=== PATIENT | male | born 1965 | race African-American/Black ===

== ENCOUNTER → 2020-09-09 13:34 | Outpatient (CLI) | payer MEDICAID, SELFPAY ==
--- NOTE | 2020-09-09 13:36 | CT_ITS ---
STUDY: CT ABDOMEN AND PELVIS WITH CONTRAST REASON FOR EXAM: Male, 55 years old. STAGING PANCREAS CANCER. History of pancreatic cancer with biliary stent placement and chemotherapy. History of prior bowel obstruction. RADIATION DOSAGE (If Supplied By Facility): CTDIvol = ( 7.42 ) mGy, DLP = ( 763.54 ) mGycm TECHNIQUE: Transaxial images were obtained from the dome of the diaphragm to the symphysis pubis with oral contrast. Oral and amp; IV Readi-CAT and amp; 100mL Isovue-300 was administered. Sagittal and coronal images were reconstructed. Individualized dose optimization techniques were used for this CT. COMPARISON: None. FINDINGS: The tip of a portacatheter is seen in the right atrium. The visualized lung bases are unremarkable. The visualized portions of the heart are within normal limits. Pneumobilia is seen within the biliary ducts. A biliary stent is seen in the common bile duct entering the head of the pancreas. The distal tip is in the duodenum. There are surgical clips in the gallbladder fossa consistent with a prior cholecystectomy. Normal spleen. There are dense pancreatic calcifications in the distribution of the ducts consistent with chronic pancreatitis. There is pancreatic atrophy. There is evidence of a 3.5 cm by 4.2 cm mass in the region of the head and body portion of the pancreas. There is evidence of omental metastasis. Multiple small lymph nodes are seen in the root of the mesentery. Normal bilateral adrenal glands. Normal right kidney. Normal left kidney. The stomach is distended with residual food as well as oral contrast. There is diffuse thickening of the second and third portions of the duodenum. Normal small intestine. Moderate amount of fecal material is seen in the colon. There is non-visualization of the appendix. Normal abdominal aorta. Normal inferior vena cava. Normal retroperitoneum. Normal urinary bladder. Moderate amount of free fluid is seen in the pelvis. Normal abdominal wall. Normal osseous structures. CT/Abdomen/Pelvis WITH Contrast IMPRESSION: Pneumobilia. A stent is seen within the common bile duct. Diffuse pancreatic calcification and atrophy. 3.5 cm x 4.2 cm mass in the region of the head and body portion of the pancreas. There is evidence of omental metastasis with fluid in the pelvis. Distended stomach with residual food particles and oral contrast. Diffuse thickening of the second and third portions of the duodenum. Electronically Signed: Jose Ramon Braden MD at 15:20 EDT , Service support ,
[2020-09-09 13:56] LABS: CREATININE FINGERSTICK 0.9 mg/dL (0.70-1.30); EGFR FINGERSTICK > 60.0000 mL/min (>60)
[2020-09-09] MEDS: 0.9% Saline Lock 10 ML Syringe IV ×2 (14:15→14:17)
== END ==
PROVIDERS: PCP Internal Medicine Infectious Disease; Referring Provider Internal Medicine Medical Oncology; Visit Provider Internal Medicine Medical Oncology
DX: C25.9 Malignant neoplasm of pancreas, unspecified (principal)
CPT/HCPCS: 74177; Q9967; A4216

== ENCOUNTER 2020-12-11 12:18 | Emergency (ER) | payer MEDICAID, SELFPAY ==
[2020-12-11] VITALS (8 sets, daily range): BP systolic 109–120; BP diastolic 71–96; PULSE 92–100; RESP 12–23; TEMP 36.2; O2SAT 96–99; BMI 18.8; BMI 17.6
[2020-12-11 12:26] LABS: Bedside Glucose 65 mg/dL (70-110)
--- NOTE | 2020-12-11 12:39 | PCM.HP.STD ---
HPI - General HPI Narrative SHARON ADKINS, is a 55 M with an extensive PMH as outlined below who presents with a complaint of PFSH Medical History Abdominal pain Acute hyperglycemia Acute hypokalemia Acute hyponatremia HILDA (acute kidney injury) Alcohol abuse Bipolar 1 disorder CAD (coronary artery disease) Cellulitis CHF (congestive heart failure) Chronic pancreatitis Depression Diabetes mellitus Former cigarette smoker History of hematemesis Jaundice Mandible fracture MRSA bacteremia Myocardial infarction Pancreatic cancer Sickle cell anemia Stroke Syncope Ulcer, duodenal, acute, with obstruction Home Medications clotrimazole 15 g TP BID 08/15/20 [History Last Taken Unknown] food supplemt, lactose-reduced 237 ml PO Q6H 08/15/20 [History Last Taken Unknown] haloperidol 0.5 mg PO DAILY PRN 08/15/20 [History Last Taken Unknown] ibuprofen 600 mg PO Q6H PRN PRN 08/15/20 [History Last Taken Unknown] lamotrigine 200 mg PO DAILY 08/15/20 [History Last Taken Unknown] lidocaine 1 ea TP DAILY 08/15/20 [History Last Taken Unknown] mirtazapine 15 mg PO DAILY 08/15/20 [History Last Taken Unknown] polyethylene glycol 8000(bulk) 500 g MC BID 08/15/20 [History Last Taken Unknown] sennosides 8.6 mg PO BID 08/15/20 [History Last Taken Unknown] sertraline 100 mg PO DAILY 08/15/20 [History Last Taken Unknown] Omeprazole [Prilosec] 40 mg PO BID 10/02/20 [History Last Taken Unknown] ondansetron HCl 4 mg PO Q6H PRN PRN 10/02/20 [History Last Taken Unknown] tramadol 50 mg PO Q6H PRN PRN 10/02/20 [History Last Taken Unknown] fentanyl 12 mcg/hr transdermal patch 1 patch TRANSDERMAL Q72H 11/20/20 [History Last Taken Unknown] haloperidol 5 mg tablet 5 mg PO DAILY 11/20/20 [History Last Taken Unknown] acetaminophen 325 mg tablet 650 mg PO Q4H PRN tab 12/11/20 [History Last Taken Unknown] Allergy/AdvReac Type Severity Reaction Status Date / Time morphine Allergy Rash Verified 12/11/20 12:24 Family History Aunt Breast cancer Sister Diabetes Grandmother Diabetes Mother Heart disease Other Hypertension Surgical History History of cholecystectomy History of exploratory laparotomy History of hernia repair Social History Smoking Status: Current every day smoker tobacco type: cigarettes Vital Signs Vital Signs Vital Signs: 12/11/20 12:19 Temperature 97.2 F L Temperature Source Oral Pulse Rate 99 Respiratory Rate 23 H Blood Pressure 120/71 Blood Pressure Mean 87 Pulse Ox 96 Oxygen Delivery Method Room Air Weight Weight: 129 lb 10.109 oz Body Mass Index (BMI) 17.6 Results Lab / Micro Data Labs: Laboratory Results - last 24 hr 12/11/20 12:21 POC Glucose 65 L
--- NOTE | 2020-12-11 12:49 | RAD_ITS ---
STUDY: X-RAY CHEST REASON FOR EXAM: Male, 55 years old. Neuro deficit, acute, stroke suspected TECHNIQUE: Single AP portable view of the chest. COMPARISON: None. FINDINGS: A right-sided portacatheter is seen with the tip in the right atrium. EKG electrodes are seen. Mildly increased interstitial markings in the right midlung and right lung base. The left lung is clear. There is no demonstrated pleural abnormality. Normal size heart. Normal mediastinum and brook. Normal visualized pulmonary arteries. Normal visualized aortic arch and descending thoracic aorta. Normal visualized thoracic spine. Normal visualized ribs, clavicles, and shoulders. There is no demonstrated abnormality of the visualized soft tissue structures of the upper abdomen. RAD/Chest 1 View IMPRESSION: Mild degree of increased linear markings at the right lung base and right midlung. The left lung is clear. Electronically Signed: Jose Ramon Braden MD at 13:37 EDT , Service support ,
--- NOTE | 2020-12-11 12:49 | EKG12_ITS ---
Test Reason : NEURO Blood Pressure : / mmHG Vent. Rate : 100 BPM Atrial Rate : 100 BPM P-R Int : 126 ms QRS Dur : 078 ms QT Int : 370 ms P-R-T Axes : 058 033 048 degrees QTc Int : 477 ms Normal sinus rhythm Nonspecific T wave abnormality Abnormal ECG Confirmed by BRITTNEY CHARLES, SKYLAR ([id number]), editor in chief KAYLEIGH HILL ([id number]) on 12/12/2020 1:08:44 PM Referred By: RIO Confirmed By:SKYLAR LUGO MD
--- NOTE | 2020-12-11 12:49 | CT_ITS ---
We are attempting to reach an attending provider to discuss findings. An addendum with communication details will be sent when the communication is complete. STUDY: CTA HEAD AND NECK WITH CONTRAST REASON FOR EXAM: Male, 55 years old. Neuro deficit, acute, stroke suspected RADIATION DOSAGE (If Supplied By Facility): CTDIvol = ( 22.99 ) mGy, DLP = ( 1433.80 ) mGycm TECHNIQUE: CT angiography was performed with a multi-detector CT scanner. Data acquisition was obtained from the skull base through the vertex following intravenous administration of IV 100mL Isovue-370. MIP images were reconstructed from the axial data set. Post-processing of the angiographic images was performed, with multiplanar reformation and 3D reconstruction. Individualized dose optimization techniques were used for this CT. COMPARISON: No relevant priors. FINDINGS: Normal bilateral petrous carotid arteries. Normal right cavernous carotid artery with a normal supraclinoid bifurcation. Normal left cavernous carotid artery with a normal supraclinoid bifurcation. Normal right A1 segments of the anterior cerebral artery. Normal left A1 segments of the anterior cerebral artery. Normal intact anterior communicating artery (ACOM). Normal bilateral A2 segments of the anterior cerebral arteries. Normal right M1 and M2 segments of the middle cerebral arteries, with a normal M1 bifurcation. Normal left M1 and M2 segments of the middle cerebral arteries, with a normal M1 bifurcation. There is a persistent origin of the right posterior cerebral artery with absence of the posterior communicating artery (PCOM). There is a persistent origin of the left posterior cerebral artery with absence of the posterior communicating artery (PCOM). Normal bilateral vertebral arteries. Normal basilar artery with a normal basilar bifurcation. The visualized bilateral superior cerebellar (SCA) arteries are normal. Normal bilateral P1, P2 and visualized P3 segments of the posterior cerebral arteries. There is no demonstrated aneurysm of the [place]. Cerebral atrophy is noted on the CT scan of the brain. A right-sided portacatheter is seen with the tip in the superior vena cava. AORTIC ARCH: Normal visualized aortic arch. Normal origins of the brachiocephalic, left common carotid, and left subclavian arteries. RIGHT CAROTID ARTERIES: Normal right common carotid artery (CCA). Normal right common carotid bulb. Normal origin of the right internal carotid (ICA) artery without a hemodynamically significant stenosis. Normal visualized cervical portion of the right internal carotid artery. Normal origin of the right external carotid artery (ECA). LEFT CAROTID ARTERIES: Normal left common carotid artery (CCA). Normal left common carotid bulb. Normal origin of the left internal carotid (ICA) artery without a hemodynamically significant stenosis. Normal visualized cervical portion of the left internal carotid artery. Normal origin of the left external carotid artery (ECA). VERTEBRAL ARTERIES: There is enhancement within the bilateral vertebral arteries with a small left vertebral artery, and a dominant right vertebral artery. CT/STROKE CTA Head AND Neck W/Con IMPRESSION: Normal CTA Head and neck with contrast. Electronically Signed: Jose Ramon Braden MD at 14:15 EDT , Service support ,
--- NOTE | 2020-12-11 12:49 | CT_ITS ---
STUDY: CT HEAD STROKE PROTOCOL W/O CONTRAST INJECTION REASON FOR EXAM: Male, 55 years old. Neuro deficit, acute, stroke suspected RADIATION DOSAGE (If Supplied By Facility): CTDIvol = ( 22.99 ) mGy, DLP = ( 1433.80 ) mGycm TECHNIQUE: Transaxial CT imaging of the brain was performed without administration of intravenous contrast material. Individualized dose optimization techniques were used for this CT. COMPARISON: No relevant priors. FINDINGS: Normal soft tissue structures. Normal calvarium. There is mild cerebral atrophy with widening of the extra-axial spaces and ventricular dilatation. There are areas of decreased attenuation within the white matter tracts of the supratentorial brain, consistent with microvascular disease changes. Normal basal ganglia and thalami. Normal brainstem. Normal cerebellum. There is no intracranial hemorrhage. There are no findings of an acute ischemic infarction. Normal visualized paranasal sinuses. CT/STROKE Brain/Head without Cont IMPRESSION: Chronic involutional changes of the brain. N.B. : The above Results were Read Back by Jose Ramon Braden MD to Rene Keita and understanding confirmed on 12/11/2020 14:11:24 (ET). Electronically Signed: Jose Ramon Braden MD at 14:12 EDT , Service support ,
--- NOTE | 2020-12-11 12:51 | ED.VIS.STROK ---
HPI History of Present Illness Chief Complaint: Neuro S/Sx Informant: patient and SNF Onset/Context/Timing Onset: Yesterday Timing: Continuous Quality and Location: Positive for Right Arm Weakness, Right Leg Weakness, Slurred Speech and Expressive Aphasia Current Severity: Mild Maximum Severity: Mild Associated Symptoms Associated Symptoms: Negative for Headache, Nausea, Vomiting and Chest Pain Narrative Narrative: Middle-age male history of pancreatic CA with unknown prognosis at this time. Undergoing chemotherapy. Patient states yesterday morning he noticed he had slurred speech and trouble finding his words. He feels he is having right arm and right leg weakness. Denies any falls or head trauma. Denies any headache. He is never had a stroke or mini stroke that he is aware of. He has had associated nausea no vomiting. He denies any fever or chills. He is on no blood thinners. Prior similar symptoms: No Recent Illness/Hospitalization: No [facility] Medical History (Updated 12/11/20 @ 15:[address] Juan Keita MD) Abdominal pain Acute hyperglycemia Acute hypokalemia Acute hyponatremia HILDA (acute kidney injury) Alcohol abuse Anxiety Bipolar 1 disorder Bipolar disorder CAD (coronary artery disease) Cellulitis CHF (congestive heart failure) Chronic pancreatitis Depression Diabetes mellitus Dysphagia Former cigarette smoker History of hematemesis Jaundice Mandible fracture MRSA bacteremia Muscle wasting and atrophy, not elsewhere classified, multiple sites Myocardial infarction Obstruction of bile duct Pancreatic cancer Paraphilia Sickle cell anemia Stroke Syncope Ulcer, duodenal, acute, with obstruction Home Medications lamotrigine 200 mg PO BID@0900,2100 08/15/20 [History Last Taken 12/11/20 09:00] sennosides 17.2 mg PO DAILY 08/15/20 [History Last Taken 12/11/20 09:00] sertraline 100 mg PO QHS 08/15/20 [History Last Taken 12/10/20 21:00] ondansetron HCl 4 mg PO Q6H PRN PRN 10/02/20 [History Last Taken 12/11/20 05:17] tramadol 50 mg PO Q6H PRN PRN 10/02/20 [History Last Taken 12/08/20 05:58] fentanyl 12 mcg/hr transdermal patch 1 patch TRANSDERMAL Q72H 11/20/20 [History Last Taken 12/09/20] haloperidol 5 mg tablet 5 mg PO DAILY 11/20/20 [History Last Taken 12/10/20 21:00] acetaminophen 325 mg tablet 650 mg PO Q4H PRN tab 12/11/20 [History Last Taken 11/28/20 18:04] mirtazapine [Remeron] 45 mg PO DAILY 12/11/20 [History Last Taken 12/11/20 09:00] omeprazole 40 mg PO BID@0900,2100 12/11/20 [History Last Taken 12/11/20 09:00] polyethylene glycol 3350 [Miralax] 17 g PO DAILY 12/11/20 [History Last Taken 12/11/20 09:00] Allergy/AdvReac Type Severity Reaction Status Date / Time morphine Allergy Rash Verified 12/11/20 12:24 Family History Aunt Breast cancer Sister Diabetes Grandmother Diabetes Mother Heart disease Other Hypertension Surgical History History of cholecystectomy History of exploratory laparotomy History of hernia repair Social History Smoking Status: Current every day smoker tobacco type: cigarettes ROS ROS ED ROS Narrative Right-sided weakness and slurred speech. Review of Systems ROS Unobtainable: Denies due to encephalopathy Constitutional Constitutional ED: Denies chills or fever(s) Eyes Eyes: Denies change in vision ENT ENT ED: Denies ear pain or sore throat Cardiovascular Cardiovascular: Denies chest pain or palpitations Respiratory/Chest Respiratory/Chest: Denies cough or dyspnea Gastrointestinal Gastrointestinal: Reports nausea; Denies abdominal pain Genitourinary Genitourinary ED: Denies dysuria or hematuria Musculoskeletal Musculoskeletal: Denies myalgias Integumentary Denies rash Neurologic Neurologic: Denies headache(s) Psychiatric Psychiatric: Denies depression Endocrine Endocrinology: Denies polyuria Hematologic/Lymphatic Hematologic/Lymphatic: Denies easy bruising Allergic/Immunologic Allergic/Immunologic ED: Denies urticaria EXAM Physical Exam Narrative Exam Narrative: Right male no acute distress vital signs stable afebrile. H EENT exam. Are reactive light no obvious facial droop. Tongue midline. Speech seems slightly slow and deliberate I can understand him easily. Does not seem very slurred to me. Neck nontender. Lungs clear to auscultation. Heart regular rhythm no murmur rate about 95 abdomen soft. Feels like he has an epigastric mass has known pancreatic cancer. No distention. No peritoneal signs. Moving all 4 extremities slightly weaker on the right arm and right leg versus left arm and left leg. No significant drift. He has no significant difference in strength or dexterity from the right side to the left.. No edema extremities are nontender. Neurologically is awake and alert with possibly mild right-sided weakness and slow deliberate but easily understandable speech. NIH score is basically 0-2 but that is very subjective. Const Vital Signs: 12/11/20 12:19 12/11/20 13:23 12/11/20 13:24 Temperature 97.2 F L Temperature Source Oral Pulse Rate 99 100 Respiratory Rate 23 H 13 Blood Pressure 120/71 117/96 H Blood Pressure Mean 87 103 Pulse Ox 96 99 98 Oxygen Delivery Method Room Air Room Air Room Air 12/11/20 13:33 12/11/20 13:40 Temperature Temperature Source Pulse Rate 100 97 Respiratory Rate 12 14 Blood Pressure 117/96 H 117/96 H Blood Pressure Mean 103 103 Pulse Ox 97 99 Oxygen Delivery Method Room Air Room Air Positive well nourished and well developed; Negative for obese General Appearance ED: well developed Nutritional Appearance: Negative for obese HEENT Reports moist mucous membranes atraumatic; Negative for trauma Eyes PERRL and EOMs intact bilaterally Neck no lymphadenopathy, supple and no JVD General: Negative for tenderness Chest Wall inspection of chest normal and palpation of chest normal Resp normal respiratory effort and clear to auscultation bilaterally GI normal to inspection, nondistended, normoactive bowel sounds, soft to palpation, non-tender and non-distended; Negative for no masses Auscultation: normoactive bowel sounds Palpation: mass Extremity Extremity Narrative: Weakness on the right. General Extremety ED: Negative for deformity, edema or tenderness General Extremity: Negative for deformity or edema Neuro oriented x3 Neuro Narrative: Right-sided weakness compared to the left is not significant.. Slow deliberate speech. NIH of approximately 0-2. Sensorium / Orientation: alert, oriented to person, oriented to place and oriented to time Psych mental status grossly normal Skin Lesions: no lesions Rashes: no rashes STROKE Vital Signs/Narrative: Vital Signs Temp Pulse Resp BP Pulse Ox 12/11/20 13:40 97 14 117/96 H 99 12/11/20 13:33 100 12 117/96 H 97 12/11/20 13:24 100 13 117/96 H 98 12/11/20 13:23 99 12/11/20 12:19 97.2 F L 99 23 H 120/71 96 Inital Vital Signs reviewed: Yes MDM MDM MDM Narrative Medical decision making narrative: Middle-age male with pancreatic CA with speech changes and subjective right-sided weakness. Will undergo stroke work-up. Also consider metastatic disease versus other etiologies. Repeat exam unchanged. Patient really does not have a significant neurological findings. [facility]-call [facility]. As is he. Is having abdominal pain from his pancreatic cancer he will be given IV fentanyl prior to discharge. Lab Data Attestation: I reviewed the patient's lab results. Lab results narrative: CBC shows white count 9. Hemoglobin 9.4 which was compared to prior labs. PT PTT INR basically unremarkable. Chemistries unremarkable with a glucose of 63. I reviewed the CAT scans the radiologist read as basically no acute process. Labs: Laboratory Results - last 24 hr 12/11/20 12/11/20 12/11/20 12:21 13:20 13:20 WBC 9.7 RBC 2.99 L Hgb 9.4 L Hct 27.4 L MCV 91.6 MCH 31.4 MCHC 34.3 RDW Std Deviation 59.9 H RDW Coeff of Jessica 18.1 H Plt Count 337 MPV 9.6 Immature Gran % (Auto) 0.800 Neut % (Auto) 80.1 H Lymph % (Auto) 5.9 L White % (Auto) 12.7 H Eos % (Auto) 0.4 Baso % (Auto) 0.1 Absolute Neuts (auto) 7.8 H Absolute Lymphs (auto) 0.57 L Nucleated RBC % 0 Differential Comment SCANNED PT 15.7 H INR 1.3 APTT 49.6 H Sodium Potassium Chloride Carbon Dioxide Anion Gap BUN Creatinine Estim Creat Clear Calc Est GFR (MDRD) Af Amer Est GFR (MDRD) Non-Af BUN/Creatinine Ratio Glucose Calcium Troponin I High Sens POC Glucose 65 L 12/11/20 13:20 WBC RBC Hgb Hct MCV MCH MCHC RDW Std Deviation RDW Coeff of Jessica Plt Count MPV Immature Gran % (Auto) Neut % (Auto) Lymph % (Auto) White % (Auto) Eos % (Auto) Baso % (Auto) Absolute Neuts (auto) Absolute Lymphs (auto) Nucleated RBC % Differential Comment PT INR APTT Sodium 141 Potassium 3.2 L Chloride 104 Carbon Dioxide 28.0 Anion Gap 9 BUN 9 Creatinine 0.70 Estim Creat Clear Calc 98.00 Est GFR (MDRD) Af Amer 149 Est GFR (MDRD) Non-Af 123 BUN/Creatinine Ratio 12.8 Glucose 63 L Calcium 8.1 L Troponin I High Sens 9.2 POC Glucose Radiography Diagnostic Testing: Radiology Impression Brain CT 12/11/20 12:49 IMPRESSION: Chronic involutional changes of the brain. N.B. : The above Results were Read Back by Jose Ramon Braden MD to Rene Keita and understanding confirmed on 12/11/2020 14:11:24 (ET). Electronically Signed: Jose Ramon Braden MD at 14:12 EDT , Service support , ADDENDUM: 12/11/20 1419 IMPRESSION: Chronic involutional changes of the brain. N.B. : The above Results were Read Back by Jose Ramon Braden MD to Rene Keita and understanding confirmed on 12/11/2020 14:11:24 (ET). Electronically Signed: Jose Ramon Braden MD at 14:12 EDT , Service support , Chest X-Ray 12/11/20 12:49 IMPRESSION: Mild degree of increased linear markings at the right lung base and right midlung. The left lung is clear. Electronically Signed: Jose Ramon Braden MD at 13:37 EDT , Service support , Head/Neck CTA 12/11/20 12:49 IMPRESSION: Normal CTA Head and neck with contrast. Electronically Signed: Jose Ramon Braden MD at 14:15 EDT , Service support , ADDENDUM: 12/11/20 1422 IMPRESSION: Normal CTA Head and neck with contrast. N.B. : The above Results were Read Back by Jose Ramon Braden MD to Dr Bossman MD, and understanding confirmed on 12/11/2020 14:15:44 (ET). Electronically Signed: Jose Ramon Braden MD at 14:15 EDT , Service support , Chest x-ray portable 1 view shows chronic changes no acute process. Normal mediastinum and cardiac silhouette. No infiltrate. Right-sided port. Rhythm Strip Rhythm Strip: Sinus Rhythm Rate: 100 Ectopy: None EKG Initial EKG: Attestation: I personally reviewed and interpreted this EKG as follows: Interpretation: Sinus Rhythm and No Acute Injury Pattern Comments: Normal sinus rhythm rate of 100 no acute signs of UT or ischemia. Prior EKG tracings: not available for review Stroke Documentation Questions Stroke Team Activated: No Reviewed Inclusion/Exclusion criteria: Yes Was Patient considered for Endovascular Intervention?: No IV Alteplase (t-PA) Administered: No No contraindications for IV Alteplase (t-PA) administration.: No Alteplase (t-PA) risks, benefits, alternative discussed: No Not given: Patient refusal: No Discharge Plan Triage Chief Complaint: Neuro S/Sx ED Provider: Juan Keita Dx/Rx/DC Orders Clinical Impression: Pancreatic cancer, Slurred speech Instructions: ED Weakness (Uncertain Cause) Prescriptions: No Action fentanyl 12 mcg/hr patch 72 hour 1 patch transdermal Q72H RF: 0 haloperidol 5 mg tablet 5 mg PO DAILY RF: 0 acetaminophen [Tylenol] 325 mg tablet 650 mg PO Q4H PRN (Reason: Pain) RF: 0 lamotrigine 200 MG tablet 200 mg PO BID@0900,2100 RF: 0 sennosides 8.6 MG tablet 17.2 mg PO DAILY RF: 0 sertraline 100 MG tablet 100 mg PO QHS RF: 0 ondansetron HCl 4 MG tablet 4 mg PO Q6H PRN PRN (Reason: Nausea) RF: 0 tramadol 50 MG tablet 50 mg PO Q6H PRN PRN (Reason: Pain 1-10 Or Fever) RF: 0 polyethylene glycol 3350 [Miralax] 17 gram Powder In Packet 17 g PO DAILY RF: 0 omeprazole 20 mg Capsule,Delayed Release(Dr/Ec) 40 mg PO BID@0900,2100 RF: 0 mirtazapine [Remeron] 45 mg Tablet 45 mg PO DAILY RF: 0 Referrals: Eber May [Other] Activity Restrictions/Additional Instructions: Follow-up with your doctor if not improving. Return emergency department if you are feeling worse. Your work-up today was basically unremarkable there is no signs of stroke. Disposition Disposition: Home, Self Care
--- NOTE | 2020-12-11 13:34 | NURSING ---
NO OLD EKGS
[2020-12-11] MEDS: 0.9% Normal Saline 1,000 ML 999 ML IV (13:37)
[2020-12-11 13:50] LABS: Absolute Lymphocyte Count 0.57 X10^3/uL (0.83-4.51); Absolute Neutrophil Count 7.8 X10^3/uL (2.0-7.7); Basophil# 0.01 X10^3/uL; Basophil% 0.1 % (0-1); Eosinophil# 0.04 X10^3/uL; Eosinophils% 0.4 % (0-5); Hematocrit 27.4 % (40-54); Hemoglobin 9.4 g/dL (13.0-16.5); Lymphocyte # 0.57 X10^3/ul (0.83-4.51); Lymphocyte % 5.9 % (19-41); Mean Corp Hgb Conc 34.3 g/dL (32-36); Mean Corpuscular Hgb 31.4 pg (27.0-32.0); Mean Corpuscular Volume 91.6 fL (80-94); Mean Platelet Vol. 9.6 fl (6.2-12.0); Monocyte# 1.23 X10^3/uL; Monocyte% 12.7 % (0-10); NRBC Flagged by Analyzer 0 % (0-5); Neutrophil # 7.75 X10^3/uL (2.7-7.7); Neutrophil % 80.1 % (47-70); POSITIVE DIFFERENTIAL YES; Platelet Count 337 K/mm3 (150-450); RBC Distribution Width CV 18.1 % (11.6-14.6); RBC Distribution Width SD 59.9 fl (35.1-43.9); Red Blood Count 2.99 M/mm3 (4.6-6.2); White Blood Count 9.7 K/mm3 (4.4-11.0)
[2020-12-11 13:51] LABS: Differential Indicated SCAN CRITERIA MET
[2020-12-11 13:54] LABS: International Normalized Ratio 1.3; Prothrombin Time (Protime)PT. 15.7 SECONDS (11.7-14.9)
[2020-12-11 13:57] LABS: Partial Thromboplast Time 49.6 Seconds (24.1-36.2)
[2020-12-11 14:03] LABS: Anion Gap 9 (5-15); BUN 9 mg/dL (7-18); BUN/Creat Ratio 12.8 RATIO (10-20); Calcium,Total 8.1 mg/dL (8.5-10.1); Chloride 104 mmol/L (98-107); EST Glomerular Filtration Rate 123 mL/min (>60); Est Glom Filt Rate - Afr Amer 149 mL/min (>60); Glucose 63 mg/dL (74-106); Potassium 3.2 mmol/L (3.5-5.1); Sodium Level 141 mmol/L (136-145); Troponin-I HS 9.2 pg/mL (3.0-78.5)
[2020-12-11 14:15] LABS: Differential Comment SCANNED
[2020-12-11] MEDS: fentaNYL 100 MCG/2 ML Ampul 50 MCG IV (15:25)
--- NOTE | 2020-12-11 15:53 | NURSING ---
CALLED [facility], TALKED TO GAURANG JENSEN IS 60 TO 90 MIN
--- NOTE | 2020-12-11 17:34 | NURSING ---
CALLED [facility], ETA IS 12 MIN
== END 2020-12-11 17:52 | disposition home or self-care (01) ==
PROVIDERS: Emergency Provider Emergency Medicine
DX: C25.9 Malignant neoplasm of pancreas, unspecified (principal); R47.81 Slurred speech; F31.9 Bipolar disorder, unspecified; I25.10 Atherosclerotic heart disease of native coronary artery without angina pectoris; F17.210 Nicotine dependence, cigarettes, uncomplicated; Z79.899 Other long term (current) drug therapy
CPT/HCPCS: 36591; 70450; 70496; 70498; 71045; 80048; 82962; 84484; 85025; 85610; 85730; 93005; 96361; 96374; 99285; J7030; Q9967; A4216

== ENCOUNTER 2020-12-14 11:44 | Inpatient (IN) | payer MEDICAID, SELFPAY ==
[2020-12-11 12:24] VITALS: BMI 17.6
[2020-12-14] VITALS (18 sets, daily range): BP systolic 92–124; BP diastolic 59–75; PULSE 102–126; RESP 16–33; TEMP 36.4–37.3; O2SAT 91–100; BMI 17.0
--- NOTE | 2020-12-14 12:51 | NURSING ---
Per RNJane, in [place]. CT contrast was injected through peripheral which blew upon injection. The port was then utilized successfully.
[2020-12-14] MEDS: Albuterol 2.5 MG/3 ML VIAL.NEB. INHALATION ×2 (13:17→19:06)
[2020-12-14] MEDS: Enoxaparin 40 MG/0.4 ML Syringe SC (13:29)
--- NOTE | 2020-12-14 13:43 | CPS ---
P decreased to 4 lpm....95%. Nurse aware of changes
[2020-12-14] MEDS: Furosemide 20 MG/2 ML VIAL IV ×2 (14:08→21:03)
[2020-12-14] MEDS: 0.9% Saline Lock 10 ML Syringe IV ×4 (14:08→21:34)
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
[2020-12-14] MEDS: Dextrose 50%-Water 25 GM/50 ML DISP.SYRIN IV ×2 (16:42→21:31)
[2020-12-14 17:56] LABS: Bedside Glucose 165 mg/dL (70-110)
--- NOTE | 2020-12-14 18:31 | NURSING ---
Pt with 12mcg Fentanyl patch to right chest. To be removed 12/15 with next scheduled dose
--- NOTE | 2020-12-14 18:41 | NURSING ---
This RN noted in the papers from [facility] that patient's contrast from CT extravasated into his chest/shoulder area. His nurse sergio noted his arm to be very swollen. This RN called [facility] to determine if his port or PIV were used for this contrast. It was determined that his PIV was used and infiltrated. His port was then accessed and used successfully. Sergio removied infiltrated PIV and is monitoring the arm. Dr Gaitan made aware.
--- NOTE | 2020-12-14 20:57 | EKG12_ITS ---
Test Reason : SOB/TACHY Blood Pressure : / mmHG Vent. Rate : 123 BPM Atrial Rate : 123 BPM P-R Int : 128 ms QRS Dur : 082 ms QT Int : 416 ms P-R-T Axes : 061 024 056 degrees QTc Int : [address] & T wave abnormality, consider lateral ischemia Abnormal ECG When compared with ECG of 11-DEC-2020 13:03, Nonspecific T wave abnormality, improved in Inferior leads Inverted T waves have replaced nonspecific T wave abnormality in Lateral leads Confirmed by BRITTNEY CHARLES, SKYLAR ([id number]), tape editor KAYLEIGH HILL ([id number]) on 12/23/2020 7:45:37 AM Referred By: DR MARMOLEJO Confirmed By:SKYLAR LUGO MD
[2020-12-14] MEDS: Pantoprazole Sodium 40 MG Tablet PO (21:03)
[2020-12-14] MEDS: lamoTRIgine 100 MG Tablet 200 MG PO (21:03)
[2020-12-14] MEDS: Sertraline 100 MG Tablet PO (21:03)
[2020-12-14] MEDS: dilTIAZem 25 MG/5 ML Vial 10 MG IV BOLUS (21:07)
--- NOTE | 2020-12-14 21:18 | RAD_ITS ---
INDICATION: Dyspnea EXAMINATION/TECHNIQUE: X-RAY - XR Chest 1 View COMPARISON: 12/11/2020. FINDINGS: Diffuse interstitial opacities. The cardiomediastinal silhouette is stable. Right-sided chest port with tip at the RA/SVC junction. No pleural effusion or pneumothorax. No acute osseous abnormalities. RAD/Chest 1 View (Portable) IMPRESSION: Worsening interstitial edema and/or infection. Electronically Signed: Antonio Caban MD at 22:30 EDT Tel , Service support ,
--- NOTE | 2020-12-14 21:27 | PCM.HOSP.N ---
Hospitalist Note With increased work of breathing, Rales ongoing, on IV Lasix, will request ABG, repeat chest x-ray to assess if worsening, placed on BiPAP at this time. Patient also tachycardic with EKG with sinus tachycardia with 1 dose 10 mg IV Cardizem administered. Patient blood sugar also low as patient had been mildly lethargic with current presentation and has history per review of hypoglycemia intermittently ongoing. Will obtain hemoglobin A1c and in the interim especially given CHF presentation will maintain on D10/half NS at 20 cc/h to assist with D50 administration x1 now and transition to strict Accu-Chek regimen. Pending further response may need to consider transition to ICU, low threshold.
[2020-12-14 21:36] LABS: Blood Gas Specimen Type VEN; O2 Delivery Device Cannula; SITE L Brach; VBG BASE EXCESS -1 mmol/L (-1.0-3.5); VBG Bicarbonate 23 mmol/L (22-26); VBG PO2 41 mmHg (25-40); VBG SO2 81 % (50-70); VBG TCO2 23 mmol/L (23-33); VBG pCO2 28.8 mmHg (41-51)
[2020-12-14 21:46] LABS: Bedside Glucose 58 mg/dL (70-110)
[2020-12-14] MEDS: Sodium Chloride 19.25 MEQ in Dextrose 10%-Water 250 ML 20 MEQ IV (22:23)
[2020-12-14 22:45] LABS: Bedside Glucose 134 mg/dL (70-110)
[2020-12-14 22:45] LABS: Bedside Glucose 70 mg/dL (70-110)
[2020-12-14 23:36] LABS: Bedside Glucose 112 mg/dL (70-110)
[2020-12-15] VITALS (13 sets, daily range): BP systolic 74–125; BP diastolic 43–84; PULSE 93–114; RESP 18–30; TEMP 36.3–36.8; O2SAT 94–97
--- NOTE | 2020-12-15 00:14 | CPS ---
bipap not set up for patient. pt was hyperventilating d/t hypoxia. pt on 9L high flow cannula resp rate down to 23 bpm
[2020-12-15] MEDS: dilTIAZem 25 MG/5 ML Vial 10 MG IV BOLUS (00:22)
[2020-12-15] MEDS: 0.9% Saline Lock 10 ML Syringe IV (00:22)
[2020-12-15 00:31] LABS: Bedside Glucose 95 mg/dL (70-110)
[2020-12-15 01:20] LABS: Bedside Glucose 95 mg/dL (70-110)
[2020-12-15] MEDS: Furosemide 20 MG/2 ML VIAL IV ×2 (01:33→13:42)
[2020-12-15 02:31] LABS: Bedside Glucose 94 mg/dL (70-110)
[2020-12-15 03:51] LABS: Bedside Glucose 93 mg/dL (70-110)
[2020-12-15 04:30] LABS: Allen Test Positive; Base Excess 2 mmol/L (-2 to +2); Bicarbonate 26.2 mmol/L (22-26); Blood Gas Specimen Type ART; O2 Delivery Device Cannula; PO2 72 mmHG (75-100); SITE L Radial; SO2 95 % (95-99); Total Carbon Dioxide 27 mmol/L; pCO2 36.8 mmHg (35-45); pH 7.46 (7.35-7.45)
[2020-12-15 06:35] LABS: Bedside Glucose 96 mg/dL (70-110)
[2020-12-15 06:53] LABS: Absolute Lymphocyte Count 0.46 X10^3/uL (0.83-4.51); Absolute Neutrophil Count 7.4 X10^3/uL (2.0-7.7); Basophil# 0.01 X10^3/uL; Basophil% 0.1 % (0-1); Differential Indicated SCAN CRITERIA MET; Eosinophil# 0.03 X10^3/uL; Eosinophils% 0.3 % (0-5); Hematocrit 25.2 % (40-54); Hemoglobin 8.7 g/dL (13.0-16.5); Lymphocyte # 0.46 X10^3/ul (0.83-4.51); Lymphocyte % 5.2 % (19-41); Mean Corp Hgb Conc 34.5 g/dL (32-36); Mean Corpuscular Volume 89.7 fL (80-94); Mean Platelet Vol. 9.5 fl (6.2-12.0); Monocyte# 0.64 X10^3/uL; Monocyte% 7.2 % (0-10); NRBC Flagged by Analyzer 0.6 % (0-5); Neutrophil # 7.39 X10^3/uL (2.7-7.7); Neutrophil % 83.4 % (47-70); POSITIVE DIFFERENTIAL YES; POSITIVE MORPHOLOGY YES; Platelet Count 152 K/mm3 (150-450); RBC Distribution Width CV 17.7 % (11.6-14.6); RBC Distribution Width SD 57.6 fl (35.1-43.9); Red Blood Count 2.81 M/mm3 (4.6-6.2); White Blood Count 8.9 K/mm3 (4.4-11.0)
[2020-12-15] MEDS: Albuterol 2.5 MG/3 ML VIAL.NEB. INHALATION (06:58)
[2020-12-15 07:00] LABS: Bedside Glucose 95 mg/dL (70-110)
[2020-12-15 07:29] LABS: Anion Gap 8 (5-15); BUN 18 mg/dL (7-18); Calcium,Total 7.7 mg/dL (8.5-10.1); Chloride 109 mmol/L (98-107); Creatinine, Serum 1.63 mg/dL (0.70-1.30); EST Glomerular Filtration Rate 47 mL/min (>60); Est Glom Filt Rate - Afr Amer 56 mL/min (>60); Estimated Creatinine Clearance 40.37 ml/min; Glucose 82 mg/dL (74-106); Potassium 2.7 mmol/L (3.5-5.1); Sodium Level 145 mmol/L (136-145)
[2020-12-15] MEDS: levoFLOXacin IV 750 MG/150 ML BAG 100 MG IV (08:47)
[2020-12-15] MEDS: Enoxaparin 40 MG/0.4 ML Syringe SC (08:53)
--- NOTE | 2020-12-15 08:55 | NURSING ---
Fentanyl patch removed from chest and flushed with Genevieve Angel RN as witness. New patch applied to Left upper shoulder area.
[2020-12-15] MEDS: Potassium Chloride 10mEq/100mL 10 MEQ/100 ML IV.SOLN. 100 MEQ IV BOLUS ×4 (10:33→13:41)
--- NOTE | 2020-12-15 10:45 | PCM.HOSP.N ---
Documented by User: Nolvia Lujan NP, [employer] 12/15/20 10:55 Hospitalist Note Subjective: Patient seen and examined. Lethargic this morning, appears tachypneic. Fentanyl patch placed by nursing this morning due to clinical symptoms of pain. Met with family last evening, they are requesting inpatient hospice facility in the [facility] where they reside. Patient is currently on 10 L nasal cannula. Noted to be tachypneic, tachycardic and borderline low blood pressure. Feel patient is appropriate for inpatient hospice at this time. Physical Exam Const General Appearance: lethargic and ill appearing Orientation / Consciousness: confused Nutritional Appearance: cachectic HEENT normocephalic, dry mucous membranes Eyes PERRL, EOMs intact bilaterally and conjunctivae normal Neck no lymphadenopathy Resp Auscultation: crackles, rales and diminished lung sounds Cardio regular rhythm and no murmurs Rate: tachycardic Peripheral Pulses: pulses 2+ throughout GI normal to inspection, nondistended, normoactive bowel sounds, non-tender and non-distended Extremity normal to inspection Skin no rashes or lesions noted Lesions: no lesions Rashes: no rashes Trauma: no lacerations or abrasions Neuro CN's II-XII intact bilaterally, no focal motor deficits, no sensory deficits noted and deep tendon reflexes 2+ bilaterally Psych mental status difficult to assess due to lethargy 1. Acute hypoxic respiratory failure secondary to multifocal pneumonia and acute on chronic heart failure-continue supplemental oxygen to maintain O2 at or above 90%. Patient's overall prognosis is poor, family requesting inpatient hospice. 2. Multifocal pneumonia- IV Levaquin. Albuterol and DuoNeb aerosols. N.p.o. due to lethargy. 3. Acute on chronic heart failure- unknown subtype. IV lasix. Documented history of CHF however no documented EF. Echo not ordered due to plans for hospice transition. 4. Pancreatic cancer- Follows with Dr. Montague. 5. History of polysubstance abuse- unclear current/recent use. 6. Bipolar depression- continue home medication regimen. 7. History of GI bleed- continue PPI. 8. Tobacco use- unclear if current use. 9. Sickle cell anemia- stable. 10. Severe protein calorie malnutrition- [employer] consult. DVT prophylaxis- Lovenox sc This patient was seen by Nolvia Lujan NP-C under the supervision of Dr. Rodriguez. Lab / Micro Data Result Diagrams: 12/15/20 05:49 12/15/20 05:49 Labs: Laboratory Results - last 24 hr 12/14/20 12/14/20 12/14/20 16:36 17:28 21:13 WBC RBC Hgb Hct MCV MCH MCHC RDW Std Deviation RDW Coeff of Jessica Plt Count MPV Immature Gran % (Auto) Neut % (Auto) Lymph % (Auto) [place] % (Auto) Eos % (Auto) Baso % (Auto) Absolute Neuts (auto) Absolute Lymphs (auto) Nucleated RBC % Sodium Potassium Chloride Carbon Dioxide Anion Gap BUN Creatinine Estim Creat Clear Calc Est GFR (MDRD) Af Amer Est GFR (MDRD) Non-Af BUN/Creatinine Ratio Glucose Hemoglobin A1c Calcium POC Glucose 58 L 165 H 70 12/14/20 12/14/20 12/15/20 22:38 23:32 00:28 WBC RBC Hgb Hct MCV MCH MCHC RDW Std Deviation RDW Coeff of Jessica Plt Count MPV Immature Gran % (Auto) Neut % (Auto) Lymph % (Auto) [place] % (Auto) Eos % (Auto) Baso % (Auto) Absolute Neuts (auto) Absolute Lymphs (auto) Nucleated RBC % Sodium Potassium Chloride Carbon Dioxide Anion Gap BUN Creatinine Estim Creat Clear Calc Est GFR (MDRD) Af Amer Est GFR (MDRD) Non-Af BUN/Creatinine Ratio Glucose Hemoglobin A1c Calcium POC Glucose 134 H 112 H 95 12/15/20 12/15/20 12/15/20 01:16 02:25 03:46 WBC RBC Hgb Hct MCV MCH MCHC RDW Std Deviation RDW Coeff of Jessica Plt Count MPV Immature Gran % (Auto) Neut % (Auto) Lymph % (Auto) [place] % (Auto) Eos % (Auto) Baso % (Auto) Absolute Neuts (auto) Absolute Lymphs (auto) Nucleated RBC % Sodium Potassium Chloride Carbon Dioxide Anion Gap BUN Creatinine Estim Creat Clear Calc Est GFR (MDRD) Af Amer Est GFR (MDRD) Non-Af BUN/Creatinine Ratio Glucose Hemoglobin A1c Calcium POC Glucose 95 94 93 12/15/20 12/15/20 12/15/20 05:25 05:49 05:49 WBC 8.9 RBC 2.81 L Hgb 8.7 L Hct 25.2 L MCV 89.7 MCH 31.0 MCHC 34.5 RDW Std Deviation 57.6 H RDW Coeff of Jessica 17.7 H Plt Count 152 MPV 9.5 Immature Gran % (Auto) 3.800 H Neut % (Auto) 83.4 H Lymph % (Auto) 5.2 L [place] % (Auto) 7.2 Eos % (Auto) 0.3 Baso % (Auto) 0.1 Absolute Neuts (auto) 7.4 Absolute Lymphs (auto) 0.46 L Nucleated RBC % 0.6 Sodium 145 Potassium 2.7 L* Chloride 109 H Carbon Dioxide 28.0 Anion Gap 8 BUN 18 Creatinine 1.63 H Estim Creat Clear Calc 40.37 Est GFR (MDRD) Af Amer 56 L Est GFR (MDRD) Non-Af 47 L BUN/Creatinine Ratio 11.0 Glucose 82 Hemoglobin A1c Calcium 7.7 L POC Glucose 96 12/15/20 12/15/20 05:49 06:48 WBC RBC Hgb Hct MCV MCH MCHC RDW Std Deviation RDW Coeff of Jessica Plt Count MPV Immature Gran % (Auto) Neut % (Auto) Lymph % (Auto) [place] % (Auto) Eos % (Auto) Baso % (Auto) Absolute Neuts (auto) Absolute Lymphs (auto) Nucleated RBC % Sodium Potassium Chloride Carbon Dioxide Anion Gap BUN Creatinine Estim Creat Clear Calc Est GFR (MDRD) Af Amer Est GFR (MDRD) Non-Af BUN/Creatinine Ratio Glucose Hemoglobin A1c 5.0 Calcium POC Glucose 95 ABG Data ABG results: ABG 12/14/20 12/15/20 21:26 04:23 Specimen Type AISSATOU ART Sample Site L Brach L Radial pH 7.46 H Bicarbonate Actual 26.2 H Total CO2 27 Base Excess 2 O2 Saturation 95 ABG pCO2 36.8 ABG pO2 72 L Chay Test Positive VBG pH 7.50 H VBG pO2 41 H VBG HCO3 23 VBG Total CO2 23 VBG O2 Sat (Calc) 81 H VBG Base Excess -1 POC Mix VBG pCO2 Pt Tmp 28.8 L O2 Delivery Device Cannula Cannula Liter Flow 5.0 8.0 Clinical Comments Radiology Impression Chest X-Ray 12/14/20 21:18 IMPRESSION: Worsening interstitial edema and/or infection. Electronically Signed: Antonio Caban MD at 22:30 EDT Tel , Service support , Weight / BMI Weight Weight: 124 lb 5.451 oz Body Mass Index (BMI) 17.0 ABG / Lab / Microbiology Data Result Diagrams: 12/15/20 05:49 12/15/20 05:49 Laboratory: Laboratory Results - last 24 hr 12/14/20 12/14/20 12/14/20 16:36 17:28 21:13 WBC RBC Hgb Hct MCV MCH MCHC RDW Std Deviation RDW Coeff of Jessica Plt Count MPV Immature Gran % (Auto) Neut % (Auto) Lymph % (Auto) [place] % (Auto) Eos % (Auto) Baso % (Auto) Absolute Neuts (auto) Absolute Lymphs (auto) Nucleated RBC % Sodium Potassium Chloride Carbon Dioxide Anion Gap BUN Creatinine Estim Creat Clear Calc Est GFR (MDRD) Af Amer Est GFR (MDRD) Non-Af BUN/Creatinine Ratio Glucose Hemoglobin A1c Calcium POC Glucose 58 L 165 H 70 12/14/20 12/14/20 12/15/20 22:38 23:32 00:28 WBC RBC Hgb Hct MCV MCH MCHC RDW Std Deviation RDW Coeff of Jessica Plt Count MPV Immature Gran % (Auto) Neut % (Auto) Lymph % (Auto) [place] % (Auto) Eos % (Auto) Baso % (Auto) Absolute Neuts (auto) Absolute Lymphs (auto) Nucleated RBC % Sodium Potassium Chloride Carbon Dioxide Anion Gap BUN Creatinine Estim Creat Clear Calc Est GFR (MDRD) Af Amer Est GFR (MDRD) Non-Af BUN/Creatinine Ratio Glucose Hemoglobin A1c Calcium POC Glucose 134 H 112 H 95 12/15/20 12/15/20 12/15/20 01:16 02:25 03:46 WBC RBC Hgb Hct MCV MCH MCHC RDW Std Deviation RDW Coeff of Jessica Plt Count MPV Immature Gran % (Auto) Neut % (Auto) Lymph % (Auto) [place] % (Auto) Eos % (Auto) Baso % (Auto) Absolute Neuts (auto) Absolute Lymphs (auto) Nucleated RBC % Sodium Potassium Chloride Carbon Dioxide Anion Gap BUN Creatinine Estim Creat Clear Calc Est GFR (MDRD) Af Amer Est GFR (MDRD) Non-Af BUN/Creatinine Ratio Glucose Hemoglobin A1c Calcium POC Glucose 95 94 93 12/15/20 12/15/20 12/15/20 05:25 05:49 05:49 WBC 8.9 RBC 2.81 L Hgb 8.7 L Hct 25.2 L MCV 89.7 MCH 31.0 MCHC 34.5 RDW Std Deviation 57.6 H RDW Coeff of Jessica 17.7 H Plt Count 152 MPV 9.5 Immature Gran % (Auto) 3.800 H Neut % (Auto) 83.4 H Lymph % (Auto) 5.2 L [place] % (Auto) 7.2 Eos % (Auto) 0.3 Baso % (Auto) 0.1 Absolute Neuts (auto) 7.4 Absolute Lymphs (auto) 0.46 L Nucleated RBC % 0.6 Sodium 145 Potassium 2.7 L* Chloride 109 H Carbon Dioxide 28.0 Anion Gap 8 BUN 18 Creatinine 1.63 H Estim Creat Clear Calc 40.37 Est GFR (MDRD) Af Amer 56 L Est GFR (MDRD) Non-Af 47 L BUN/Creatinine Ratio 11.0 Glucose 82 Hemoglobin A1c Calcium 7.7 L POC Glucose 96 12/15/20 12/15/20 05:49 06:48 WBC RBC Hgb Hct MCV MCH MCHC RDW Std Deviation RDW Coeff of Jessica Plt Count MPV Immature Gran % (Auto) Neut % (Auto) Lymph % (Auto) [place] % (Auto) Eos % (Auto) Baso % (Auto) Absolute Neuts (auto) Absolute Lymphs (auto) Nucleated RBC % Sodium Potassium Chloride Carbon Dioxide Anion Gap BUN Creatinine Estim Creat Clear Calc Est GFR (MDRD) Af Amer Est GFR (MDRD) Non-Af BUN/Creatinine Ratio Glucose Hemoglobin A1c 5.0 Calcium POC Glucose 95 ABG: ABG 12/14/20 12/15/20 21:26 04:23 Specimen Type AISSATOU ART Sample Site L Brach L Radial pH 7.46 H Bicarbonate Actual 26.2 H Total CO2 27 Base Excess 2 O2 Saturation 95 ABG pCO2 36.8 ABG pO2 72 L Chay Test Positive VBG pH 7.50 H VBG pO2 41 H VBG HCO3 23 VBG Total CO2 23 VBG O2 Sat (Calc) 81 H VBG Base Excess -1 POC Mix VBG pCO2 Pt Tmp 28.8 L O2 Delivery Device Cannula Cannula Liter Flow 5.0 8.0 Clinical Comments Radiography Diagnostic Testing: Radiology Impression Chest X-Ray 12/14/20 21:18 IMPRESSION: Worsening interstitial edema and/or infection. Electronically Signed: Antonio Caban MD at 22:30 EDT Tel , Service support , Documented by User: Dr. Esther Rodriguez MD 12/15/20 13:32 Addendum Addendum: Patient seen by Nolvia WEST under my supervision Patient seen and examined. He remains very lethargic, and minimally responsive. Family wants him placed in a hospice in [place], where they reside. Unable to do review of systems due to patient's lethargy. O/E: Const General Appearance: lethargic and ill appearing Orientation / Consciousness: confused Nutritional Appearance: cachectic HEENT normocephalic, dry mucous membranes Eyes PERRL, EOMs intact bilaterally and conjunctivae normal Neck no lymphadenopathy Resp Auscultation:diminished breath sounds bibasally, few wheezes and crackles. On 10L of oxygen by nasal canula Cardio regular rhythm and no murmurs Rate: tachycardic Peripheral Pulses: pulses 2+ throughout GI normal to inspection, nondistended, normoactive bowel sounds, non-tender and non-distended Extremity normal to inspection Skin no rashes or lesions noted Lesions: no lesions Rashes: no rashes Trauma: no lacerations or abrasions Neuro CN's II-XII intact bilaterally, no focal motor deficits, no sensory deficits noted Psych very lethargic Patient has been managed for acute hypoxic respiratory failure due to multifocal pneumonia and acute on chronic heart failure. He is on IV Levaquin. He is on oxygen to maintain saturation above 90%. Patient is critically ill and family wants to make him hospice. However they want him sent to a hospice in [place] because his entire family lives in [place]. To initiate process to try to get patient to [place] hospice. Currently on IV Lasix as well. Patient does have a history of pancreatic cancer and follows with oncology. Prognosis remains very poor. Rest as per Nolvia Lujan [employer]'s note, which I have reviewed and endorsed. Visit Charges Inpatient E&M: 08515 Subs Hosp L3 Lab / Micro Data Result Diagrams: 12/15/20 05:49 12/15/20 05:49 ABG / Lab / Microbiology Data Result Diagrams: 12/15/20 05:49 12/15/20 05:49
[2020-12-15] MEDS: Sodium Chloride 19.25 MEQ in Dextrose 10%-Water 250 ML 20 MEQ IV (10:59)
[2020-12-15 11:31] LABS: Bedside Glucose 106 mg/dL (70-110)
[2020-12-15] MEDS: morphine (oral solution) 10MG/0.5ML Syringe 5 MG SL/PO (15:11)
--- NOTE | 2020-12-15 16:58 | PCM.DC.SUM ---
Documented by User: Nolvia Lujan NP, [employer] 12/15/20 17:13 Providers Date of Admission: 12/14/20 Date of Discharge: 12/15/20 Primary Care Physician: Eber May Reason For Visit: HYPOXIC RESPIRATORY FAILURE, PNEUMONIA, CHF Diagnosis Discharge Diagnosis (1) Pancreatic cancer: Status: Chronic Code(s): C25.9 - Malignant neoplasm of pancreas, unspecified Medications at Discharge Home Medications lamotrigine 200 mg PO BID@0900,209908/15/20 sennosides 17.2 mg PO DAILY 08/15/20 sertraline 100 mg PO QHS 08/15/20 ondansetron HCl 4 mg PO Q6H PRN PRN 10/02/20 tramadol 50 mg PO Q6H PRN PRN 10/02/20 fentanyl 12 mcg/hr transdermal patch 1 patch TRANSDERMAL Q72H 11/20/20 haloperidol 5 mg tablet 5 mg PO DAILY 11/20/20 acetaminophen 325 mg tablet 650 mg PO Q4H PRN tab 12/11/20 mirtazapine [Remeron] 45 mg PO DAILY 12/11/20 omeprazole 40 mg PO BID@0900,2100 12/11/20 polyethylene glycol 3350 [Miralax] 17 g PO DAILY 12/11/20 Hospital Course Operations None Procedures None Summary of Care Provided Minutes Spent on Discharge: 35 Hospital Course: Patient is a 55-year-old male admitted 12/14/20 due to shortness of breath. 1. Acute hypoxic respiratory failure secondary to multifocal pneumonia and acute on chronic heart failure-continue supplemental oxygen to maintain O2 at or above 90%. Patient's overall prognosis is poor, family requesting inpatient hospice. Patient clinically deteriorating. Discharge to inpatient hospice in [facility]. 2. Multifocal pneumonia- IV Levaquin. Albuterol and DuoNeb aerosols. N.p.o. due to lethargy. 3. Acute on chronic heart failure- unknown subtype. IV lasix during admission. Documented history of CHF however no documented EF. Echo not ordered due to plans for hospice transition. 4. Pancreatic cancer- Follows with Dr. Montague. 5. History of polysubstance abuse- unclear current/recent use. 6. Bipolar depression- continue home medication regimen. 7. History of GI bleed-on PPI. 8. Tobacco use- unclear if current use. 9. Sickle cell anemia- stable. 10. Severe protein calorie malnutrition Physical Exam Const General Appearance: lethargic and ill appearing Orientation / Consciousness: confused Nutritional Appearance: cachectic HEENT normocephalic, dry mucous membranes Eyes PERRL, EOMs intact bilaterally and conjunctivae normal Neck no lymphadenopathy Resp Auscultation: crackles, rales and diminished lung sounds Cardio regular rhythm and no murmurs Rate: tachycardic Peripheral Pulses: pulses 2+ throughout GI normal to inspection, nondistended, normoactive bowel sounds, non-tender and non-distended Extremity normal to inspection Skin no rashes or lesions noted Lesions: no lesions Rashes: no rashes Trauma: no lacerations or abrasions Neuro CN's II-XII intact bilaterally, no focal motor deficits, no sensory deficits noted and deep tendon reflexes 2+ bilaterally Psych mental status difficult to assess due to lethargy Patient seen and examined prior to discharge. Physical assessment as noted above. Patient is stable for discharge with follow up recommendations as noted above. This patient was seen by BRETT Simental under the supervision of Dr. Rodriguez. Weight / BMI Weight Weight: 124 lb 5.451 oz Body Mass Index (BMI) 17.0 ABG / Lab / Microbiology Data Result Diagrams: 12/15/20 05:49 12/15/20 05:49 Laboratory: Laboratory Results - last 24 hr 12/14/20 12/14/20 12/14/20 16:36 17:28 21:13 WBC RBC Hgb Hct MCV MCH MCHC RDW Std Deviation RDW Coeff of Jessica Plt Count MPV Immature Gran % (Auto) Neut % (Auto) Lymph % (Auto) [place] % (Auto) Eos % (Auto) Baso % (Auto) Absolute Neuts (auto) Absolute Lymphs (auto) Nucleated RBC % Sodium Potassium Chloride Carbon Dioxide Anion Gap BUN Creatinine Estim Creat Clear Calc Est GFR (MDRD) Af Amer Est GFR (MDRD) Non-Af BUN/Creatinine Ratio Glucose Hemoglobin A1c Calcium POC Glucose 58 L 165 H 70 12/14/20 12/14/20 12/15/20 22:38 23:32 00:28 WBC RBC Hgb Hct MCV MCH MCHC RDW Std Deviation RDW Coeff of Jessica Plt Count MPV Immature Gran % (Auto) Neut % (Auto) Lymph % (Auto) [place] % (Auto) Eos % (Auto) Baso % (Auto) Absolute Neuts (auto) Absolute Lymphs (auto) Nucleated RBC % Sodium Potassium Chloride Carbon Dioxide Anion Gap BUN Creatinine Estim Creat Clear Calc Est GFR (MDRD) Af Amer Est GFR (MDRD) Non-Af BUN/Creatinine Ratio Glucose Hemoglobin A1c Calcium POC Glucose 134 H 112 H 95 12/15/20 12/15/20 12/15/20 01:16 02:25 03:46 WBC RBC Hgb Hct MCV MCH MCHC RDW Std Deviation RDW Coeff of Jessica Plt Count MPV Immature Gran % (Auto) Neut % (Auto) Lymph % (Auto) [place] % (Auto) Eos % (Auto) Baso % (Auto) Absolute Neuts (auto) Absolute Lymphs (auto) Nucleated RBC % Sodium Potassium Chloride Carbon Dioxide Anion Gap BUN Creatinine Estim Creat Clear Calc Est GFR (MDRD) Af Amer Est GFR (MDRD) Non-Af BUN/Creatinine Ratio Glucose Hemoglobin A1c Calcium POC Glucose 95 94 93 12/15/20 12/15/20 12/15/20 05:25 05:49 05:49 WBC 8.9 RBC 2.81 L Hgb 8.7 L Hct 25.2 L MCV 89.7 MCH 31.0 MCHC 34.5 RDW Std Deviation 57.6 H RDW Coeff of Jessica 17.7 H Plt Count 152 MPV 9.5 Immature Gran % (Auto) 3.800 H Neut % (Auto) 83.4 H Lymph % (Auto) 5.2 L [place] % (Auto) 7.2 Eos % (Auto) 0.3 Baso % (Auto) 0.1 Absolute Neuts (auto) 7.4 Absolute Lymphs (auto) 0.46 L Nucleated RBC % 0.6 Sodium 145 Potassium 2.7 L* Chloride 109 H Carbon Dioxide 28.0 Anion Gap 8 BUN 18 Creatinine 1.63 H Estim Creat Clear Calc 40.37 Est GFR (MDRD) Af Amer 56 L Est GFR (MDRD) Non-Af 47 L BUN/Creatinine Ratio 11.0 Glucose 82 Hemoglobin A1c Calcium 7.7 L POC Glucose 96 12/15/20 12/15/20 12/15/20 05:49 06:48 11:13 WBC RBC Hgb Hct MCV MCH MCHC RDW Std Deviation RDW Coeff of Jessica Plt Count MPV Immature Gran % (Auto) Neut % (Auto) Lymph % (Auto) [place] % (Auto) Eos % (Auto) Baso % (Auto) Absolute Neuts (auto) Absolute Lymphs (auto) Nucleated RBC % Sodium Potassium Chloride Carbon Dioxide Anion Gap BUN Creatinine Estim Creat Clear Calc Est GFR (MDRD) Af Amer Est GFR (MDRD) Non-Af BUN/Creatinine Ratio Glucose Hemoglobin A1c 5.0 Calcium POC Glucose 95 106 ABG: ABG 12/14/20 12/15/20 21:26 04:23 Specimen Type AISSATOU ART Sample Site L Brach L Radial pH 7.46 H Bicarbonate Actual 26.2 H Total CO2 27 Base Excess 2 O2 Saturation 95 ABG pCO2 36.8 ABG pO2 72 L Chay Test Positive VBG pH 7.50 H VBG pO2 41 H VBG HCO3 23 VBG Total CO2 23 VBG O2 Sat (Calc) 81 H VBG Base Excess -1 POC Mix VBG pCO2 Pt Tmp 28.8 L O2 Delivery Device Cannula Cannula Liter Flow 5.0 8.0 Clinical Comments Radiography Diagnostic Testing: Radiology Impression Chest X-Ray 12/14/20 21:18 IMPRESSION: Worsening interstitial edema and/or infection. Electronically Signed: Antonio Caban MD at 22:30 EDT Tel , Service support , Meaningful Use Info Meaningful Use Diagnoses (Choose all that apply): None applicable Discharge Plan Admission Admit Date/Time: 12/14/20 11:44 Attending Provider: Esther Rodriguez Discharge Orders/Prescriptions Prescriptions: No Action fentanyl 12 mcg/hr patch 72 hour 1 patch transdermal Q72H RF: 0 haloperidol 5 mg tablet 5 mg PO DAILY RF: 0 acetaminophen [Tylenol] 325 mg tablet 650 mg PO Q4H PRN (Reason: Pain) RF: 0 lamotrigine 200 MG tablet 200 mg PO BID@0900,2100 RF: 0 sennosides 8.6 MG tablet 17.2 mg PO DAILY RF: 0 sertraline 100 MG tablet 100 mg PO QHS RF: 0 ondansetron HCl 4 MG tablet 4 mg PO Q6H PRN PRN (Reason: Nausea) RF: 0 tramadol 50 MG tablet 50 mg PO Q6H PRN PRN (Reason: Pain 1-10 Or Fever) RF: 0 polyethylene glycol 3350 [Miralax] 17 gram Powder In Packet 17 g PO DAILY RF: 0 omeprazole 20 mg Capsule,Delayed Release(Dr/Ec) 40 mg PO BID@0900,2099 RF: 0 mirtazapine [Remeron] 45 mg Tablet 45 mg PO DAILY RF: 0 Referrals / Follow Up: Eber May [Other] Disposition Disposition (needs filled in before D/C Order can be placed): Hospice in Medical Facility Documented by User: Dr. Esther Rodriguez MD 12/15/20 18:14 Providers Date of Admission: 12/14/20 Reason For Visit: HYPOXIC RESPIRATORY FAILURE, PNEUMONIA, CHF Medications at Discharge Home Medications lamotrigine 200 mg PO BID@0900,209908/15/20 sennosides 17.2 mg PO DAILY 08/15/20 sertraline 100 mg PO QHS 08/15/20 ondansetron HCl 4 mg PO Q6H PRN PRN 10/02/20 tramadol 50 mg PO Q6H PRN PRN 10/02/20 fentanyl 12 mcg/hr transdermal patch 1 patch TRANSDERMAL Q72H 11/20/20 haloperidol 5 mg tablet 5 mg PO DAILY 11/20/20 acetaminophen 325 mg tablet 650 mg PO Q4H PRN tab 12/11/20 mirtazapine [Remeron] 45 mg PO DAILY 12/11/20 omeprazole 40 mg PO BID@0900,2100 12/11/20 polyethylene glycol 3350 [Miralax] 17 g PO DAILY 12/11/20 ABG / Lab / Microbiology Data Result Diagrams: 12/15/20 05:49 12/15/20 05:49 Discharge Plan Admission Admit Date/Time: 12/14/20 11:44 Attending Provider: Esther Rodriguez Discharge Orders/Prescriptions Prescriptions: No Action fentanyl 12 mcg/hr patch 72 hour 1 patch transdermal Q72H RF: 0 haloperidol 5 mg tablet 5 mg PO DAILY RF: 0 acetaminophen [Tylenol] 325 mg tablet 650 mg PO Q4H PRN (Reason: Pain) RF: 0 lamotrigine 200 MG tablet 200 mg PO BID@0900,2100 RF: 0 sennosides 8.6 MG tablet 17.2 mg PO DAILY RF: 0 sertraline 100 MG tablet 100 mg PO QHS RF: 0 ondansetron HCl 4 MG tablet 4 mg PO Q6H PRN PRN (Reason: Nausea) RF: 0 tramadol 50 MG tablet 50 mg PO Q6H PRN PRN (Reason: Pain 1-10 Or Fever) RF: 0 polyethylene glycol 3350 [Miralax] 17 gram Powder In Packet 17 g PO DAILY RF: 0 omeprazole 20 mg Capsule,Delayed Release(Dr/Ec) 40 mg PO BID@0900,2099 RF: 0 mirtazapine [Remeron] 45 mg Tablet 45 mg PO DAILY RF: 0 Referrals / Follow Up: Eber May [Other] Disposition Disposition (needs filled in before D/C Order can be placed): Hospice in Medical Facility Charges/Coding Addendum Addendum: Patient seen by Nolvia WEST under my supervision Patient is a 55-year-old male who was admitted through the ED on 12/14/2020 with a complaint of shortness of breath. He was admitted from an outside facility and was found to be lethargic and confused on admission. He was tachypneic and ill-appearing as well as cachectic. Patient has a past history of pancreatic cancer and polysubstance abuse. Imaging done on admission showed evidence of multifocal pneumonia. He was also requiring oxygen. He was admitted and managed for acute hypoxic respiratory failure due to multifocal pneumonia as well as acute on chronic heart failure. He was started on diuresis with IV Lasix and also started on IV Levaquin. Family was contacted and stated that they wanted patient to be sent to a hospice facility in [place] where his family left as they understood he was critically ill. Patient remained lethargic and on 10 L of oxygen throughout admission. Based on poor prognosis, hospice was consulted and he was accepted at a hospice medical facility in [place]. Patient was discharged to the hospice medical facility in [facility] on 12/15/2020. Patient was seen and examined prior to discharge. Please see progress notes dated 12/15/2020 for physical examination findings. Rest as per Nolvia Lujan NP-C's note which I have reviewed and endorsed. Visit Charges Inpatient E&M: 55106 Disch Hosp
--- NOTE | 2020-12-15 17:07 | PCA ---
Spoke with nurse on the [address] at [facility] and notified her of family signing hospice paperwork and transfer set up for today.
== END 2020-12-15 18:56 | disposition hospice, inpatient (51) | DRG 139 ==
PROVIDERS: Family Medicine; Admitting Provider Internal Medicine; Visit Provider Student in an Organized Health Care Education/Training Program
DX: J18.9 Pneumonia, unspecified organism (principal); J96.01 Acute respiratory failure with hypoxia; I50.9 Heart failure, unspecified; C25.9 Malignant neoplasm of pancreas, unspecified; I11.0 Hypertensive heart disease with heart failure; D57.1 Sickle-cell disease without crisis; F41.9 Anxiety disorder, unspecified; K86.1 Other chronic pancreatitis; F19.10 Other psychoactive substance abuse, uncomplicated; I25.10 Atherosclerotic heart disease of native coronary artery without angina pectoris; F31.9 Bipolar disorder, unspecified; I25.2 Old myocardial infarction; E43 Unspecified severe protein-calorie malnutrition; Z68.1 Body mass index [BMI] 19.9 or less, adult; Z66 Do not resuscitate; Z87.19 Personal history of other diseases of the digestive system; Z86.14 Personal history of Methicillin resistant Staphylococcus aureus infection; Z86.73 Personal history of transient ischemic attack (TIA), and cerebral infarction without residual deficits; Z79.899 Other long term (current) drug therapy; F17.210 Nicotine dependence, cigarettes, uncomplicated
CPT/HCPCS: 36415; 36591; 36600; 70450; 70496; 70498; 71045; 80048; 80053; 82378; 82803; 82962; 83036; 83615; 84484; 85025; 85610; 85730; 86301; 93005; 94640; 96361; 96374; 99251; 99285; J7030; Q9967; A4216; G0463; J1940